=== PATIENT | male | born 1980 | race African-American/Black ===

== ENCOUNTER → 2019-07-02 10:00 | Outpatient (BNVA) | payer MEDICAID, SELFPAY | PROVIDERS: Visit Provider Nurse Practitioner Family | DX: G40.909 Epilepsy, unspecified, not intractable, without status epilepticus (principal) | CPT/HCPCS: 80053; 80177 ==

== ENCOUNTER → 2019-09-27 09:00 | Outpatient (BNVA) | payer MEDICAID, SELFPAY | PROVIDERS: Visit Provider Nurse Practitioner Family | DX: G40.409 Other generalized epilepsy and epileptic syndromes, not intractable, without status epilepticus (principal); F33.1 Major depressive disorder, recurrent, moderate; Z76.89 Persons encountering health services in other specified circumstances | CPT/HCPCS: 80177 ==

== ENCOUNTER → 2020-04-11 10:54 | Outpatient (BNVA) | payer MEDICAID, SELFPAY | PROVIDERS: Visit Provider Family Medicine | DX: Z09 Encounter for follow-up examination after completed treatment for conditions other than malignant neoplasm (principal); G40.409 Other generalized epilepsy and epileptic syndromes, not intractable, without status epilepticus; F33.1 Major depressive disorder, recurrent, moderate | CPT/HCPCS: 80053; 80177 ==

== ENCOUNTER → 2020-06-12 13:58 | Outpatient (BNVA) | payer MEDICAID, SELFPAY | PROVIDERS: Visit Provider Psychiatry & Neurology Psychiatry | DX: F63.81 Intermittent explosive disorder (principal); F33.1 Major depressive disorder, recurrent, moderate | CPT/HCPCS: 99204 ==

== ENCOUNTER → 2020-12-28 13:29 | Outpatient (BNVA) | payer MEDICAID, SELFPAY | PROVIDERS: Visit Provider Family Medicine | DX: G40.409 Other generalized epilepsy and epileptic syndromes, not intractable, without status epilepticus (principal) | CPT/HCPCS: 80177 ==

== ENCOUNTER → 2021-05-16 13:48 | Outpatient (BNVA) | payer MEDICAID, SELFPAY | PROVIDERS: Visit Provider Family Medicine | DX: G40.409 Other generalized epilepsy and epileptic syndromes, not intractable, without status epilepticus (principal); F33.1 Major depressive disorder, recurrent, moderate; R25.1 Tremor, unspecified | CPT/HCPCS: 80177 ==

== ENCOUNTER → 2021-08-29 09:48 | Outpatient (BNVA) | payer MEDICAID, SELFPAY | PROVIDERS: Visit Provider Specialist | DX: G40.901 Epilepsy, unspecified, not intractable, with status epilepticus (principal) | CPT/HCPCS: 99204 ==

== ENCOUNTER 2021-09-15 18:07 | Inpatient (IN) | payer MEDICAID, SELFPAY ==
[2021-09-15 18:11] VITALS: BP 104/81; PULSE 78; RESP 18; TEMP 36.8; O2SAT 95; BMI 29.0
--- NOTE | 2021-09-15 18:38 | ED.C_ITS ---
HPI - Psych General: Chief Complaint: Psychiatric Symptoms Stated Complaint: PSYCH EVAL Time Seen by Provider: 09/15/21 18:07 History of Present Illness: Patient comes in with depression and suicidal ideation. States yesterday he told his that he wished he had a gun so he could shoot himself or a knife to cut his throat. States he does not want to kill himself and does not think he would, however after discussing it with his family members he decided he would come to the emergency department for help. Denies alcohol or drug abuse except for medical marijuana. States he is due for his night meds at this time. Associated symptoms: Reports depression Review of Systems Const: Denies: fever(s) or body aches Eyes: Denies: change in vision or blurry vision ENMT: Denies: throat pain or odynophagia Card: Denies: chest pain or palpitations Resp: Denies: dyspnea or productive cough GI: Denies: abdominal pain, nausea or vomiting : Denies: flank pain or dysuria Musc: Denies: neck pain or back pain Skin/Breast: Denies: rash or pruritus Neuro: Denies: headache(s) or numbness in extremities Psych: Reports: depression; Denies: anxiety or change in appetite Endo: Denies: polyuria or excessive sweating PFSH ED PFSH: Medical History Depression doing well on paroxetine. refilled today. Epilepsy Grand mal seizure History of asthma Psychiatric care Social History Smoking and tobacco status: current every day smoker cigarettes Packs smoked per day: 1 Years cigarettes smoked: 23 [ Other cigarette details: and CBD] Quit status (tobacco): has tried quititng Alcohol intake: never Physical Exam Const: COMMON NORMALS: no acute distress, patient oriented x3, healthy appear ing and alert HENMT: COMMON NORMALS: normocephalic and atraumatic HEAD & SCALP: normocephalic and atraumatic Eye: COMMON NORMALS: Equal, round and reactive pupils present and EOMs intact bilaterally PUPIL: Yes Equal, round and reactive pupils present Neck/C-Spine: COMMON NORMALS: full ROM and supple Resp: COMMON NORMALS: normal respiratory effort, No retractions and No use of accessory muscles Cardio: COMMON NORMALS: regular rate and regular rhythm RATE: regular rate RHYTHM: regular rhythm GI: COMMON NORMALS: Normal to inspection, nondistended, normoactive bowel sounds present, Soft to palpation and non-tender PALPATION: Yes Soft to palpation Back/Pelvis: COMMON NORMALS: thoracic and lumbar spine normal to inspection and no thoracic nor lumbar tenderness Extremity: COMMON NORMALS: normal to inspection and full ROM Neuro: COMMON NORMALS: patient oriented x3 SENSORIUM/ORIENTATION: Yes alert Psych: COMMON NORMALS: mental status grossly normal and cooperative Skin: COMMON NORMALS: no rashes or lesions noted and no wounds GENERAL SKIN EXAM: no rashes or lesions noted Course Vital Signs: Vital signs: Vital Signs Temperature 98.3 F 09/15/21 18:11 Pulse Rate 78 09/15/21 18:11 Respiratory Rate 18 09/15/21 18:11 Blood Pressure 104/81 09/15/21 18:11 Pulse Oximetry 95 09/15/21 18:11 MDM - Psych Medical Decision Making Patient comes in with depression and suicidal ideation. States yesterday he told his that he wished he had a gun so he could shoot himself or a knife to cut his throat. States he does not want to kill himself and does not think he would, however after discussing it with his family members he decided he would come to the emergency department for help. Denies alcohol or drug abuse except for medical marijuana. States he is due for his night meds at this time. Physical exam is unremarkable. We will give him his night meds, check labs, consult psych, and reassess. On reassessment I discussed the case with psychiatry and we will admit the patient for further treatment of his depression and suicidal thoughts. Lab Data : 09/15/21 18:20 09/15/21 18:20 Laboratory Results WBC 7.8 10^3/uL (4.0-10.0) 09/15/21 18:20 RBC 5.60 10^6/uL (4.1-5.3) H 09/15/21 18:20 Hgb 17.0 g/dL (11.7-16.6) H 09/15/21 18:20 Hct 47.6 % (42.0-52.0) 09/15/21 18:20 MCV 85.0 fl (80-94) 09/15/21 18:20 MCH 30.4 pg (28.0-34.0) 09/15/21 18:20 MCHC 35.7 g/dL (30.0-36.0) 09/15/21 18:20 RDW 12.0 % (12.1-15.1) L 09/15/21 18:20 Plt Count 287 10^3/cmm (130-400) 09/15/21 18:20 MPV 10.3 fL (7.4-10.4) 09/15/21 18:20 Neut % (Auto) 59.0 % 09/15/21 18:20 Lymph % (Auto) 33.5 % 09/15/21 18:20 Teller % (Auto) 6.6 % 09/15/21 18:20 Eos % (Auto) 0.0 % 09/15/21 18:20 Baso % (Auto) 0.5 % 09/15/21 18:20 Neut # (Auto) 4.61 10^3/uL (1.8-7.7) 09/15/21 18:20 Lymph # (Auto) 2.6 10^3/uL (0.8-4.8) 09/15/21 18:20 Teller # (Auto) 0.5 10^3/uL (0.2-0.9) 09/15/21 18:20 Eos # (Auto) 0.0 10^3/uL (0.0-0.8) 09/15/21 18:20 Baso # (Auto) 0.0 10^3/uL (0.0-0.1) 09/15/21 18:20 Nucleated RBC % (auto) 0 % 09/15/21 18:20 Nucleated RBCs # 0.0 /100WBC 09/15/21 18:20 Sodium 135 mmol/L (136-145) L 09/15/21 18:20 Potassium 4.0 mmol/L (3.5-5.1) 09/15/21 18:20 Chloride 98 mmol/L (98-107) 09/15/21 18:20 Carbon Dioxide 23 mmol/L (22-29) 09/15/21 18:20 Anion Gap 18.0 (5-19) 09/15/21 18:20 BUN 8 mg/dL (6-20) 09/15/21 18:20 Creatinine 1.0 mg/dL (0.7-1.2) 09/15/21 18:20 GFR Calculation 100.7 mL/min (90-130) 09/15/21 18:20 Glucose 261 mg/dL (65-115) H 09/15/21 18:20 Calculated Osmolality 287 mOsm/kg (285-295) 09/15/21 18:20 Calcium 10.2 mg/dL (8.5-10.5) 09/15/21 18:20 Total Bilirubin 0.4 mg/dL (0.15-1.2) 09/15/21 18:20 AST 15 U/L (0-40) 09/15/21 18:20 ALT 28 U/L (0-41) 09/15/21 18:20 Alkaline Phosphatase 126 IU/L (40-130) 09/15/21 18:20 Total Protein 8.0 g/dL (6.6-8.7) 09/15/21 18:20 Albumin 5.0 g/dL (3.5-5.2) 09/15/21 18:20 Globulin 3.0 g/dL (1.3-4.6) 09/15/21 18:20 Salicylates < 0.3 mg/dL (3-10) L 09/15/21 18:20 Urine Opiates Screen Negative ng/mL (Negative) 09/15/21 18:20 Acetaminophen < 5.0 ug/mL (10-30) L 09/15/21 18:20 Ur Barbiturates Screen Negative ng/mL (Negative) 09/15/21 18:20 Ur Phencyclidine Scrn Negative ng/mL (Negative) 09/15/21 18:20 Ur Amphetamines Screen Negative ng/mL (Negative) 09/15/21 18:20 U Benzodiazepines Scrn Negative ng/mL (Negative) 09/15/21 18:20 Urine Cocaine Screen Negative ng/mL (Negative) 09/15/21 18:20 U Marijuana (THC) Screen Negative ng/mL (Negative) 09/15/21 18:20 Discharge Plan Discharge Patient Disposition: Admitted As Inpatient Clinical Impression: Depression, Suicidal thoughts Condition: Stable Coding Level of Care Code ED Stem Processing Machine Operator for [facility] Fwd Exam Comprehensive
[2021-09-15 18:47] LABS: Basophils % 0.5 %; Hematocrit 47.6 % (42.0-52.0); Lymphocytes # 2.6 10^3/uL (0.8-4.8); Lymphocytes % 33.5 %; Mean Corpuscular HGB Conc 35.7 g/dL (30.0-36.0); Mean Corpuscular Hemoglobin 30.4 pg (28.0-34.0); Mean Platelet Volume 10.3 fL (7.4-10.4); Monocytes # 0.5 10^3/uL (0.2-0.9); Monocytes % 6.6 %; Neutrophils # 4.61 10^3/uL (1.8-7.7); Nucleated Red Blood Cells % 0 %; Platelet Count 287 10^3/cmm (130-400); White Blood Count 7.8 10^3/uL (4.0-10.0)
[2021-09-15 18:57] LABS: Alanine Aminotransferase 28 U/L (0-41); Alkaline Phosphatase 126 IU/L (40-130); Aspartate Amino Transferase 15 U/L (0-40); Blood Urea Nitrogen 8 mg/dL (6-20); Calcium 10.2 mg/dL (8.5-10.5); Carbon Dioxide 23 mmol/L (22-29); Chloride 98 mmol/L (98-107); Glomerular Filtration Rate 100.7 mL/min (90-130); Glucose 261 mg/dL (65-115); Osmolality Calculated 287 mOsm/kg (285-295); Sodium 135 mmol/L (136-145); Total Bilirubin 0.4 mg/dL (0.15-1.2)
[2021-09-15 19:01] LABS: Acetaminophen < 5.0 ug/mL (10-30); Salicylate < 0.3 mg/dL (3-10)
[2021-09-15] MEDS: PARoxetine 20 mg Tablet 10 MG PO (19:17)
[2021-09-15] MEDS: ziprasidone hcl 20 mg Capsule PO (19:17)
[2021-09-15] MEDS: levETIRAcetam 500 mg Tablet PO (19:17)
[2021-09-15] MEDS: OXcarbazepine 300 mg Tablet 600 MG PO (19:18)
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
[2021-09-15 19:30] LABS: Amphetamines Screen Urine Negative (Negative); Barbiturates Screen Urine Negative (Negative); Benzodiazepines Screen Urine Negative (Negative); Cocaine Screen Urine Negative (Negative); Opiate Screen Urine Negative (Negative); PCP Screen Urine Negative (Negative); THC Screen Urine Negative (Negative)
[2021-09-15 20:47] VITALS: BP 135/87; PULSE 82; RESP 16; O2SAT 95
[2021-09-15 21:13] VITALS: BP 129/83; PULSE 74; RESP 18; TEMP 36.8; O2SAT 99
[2021-09-15 21:35] VITALS: BMI 34.0
[2021-09-15 22:00] VITALS: BP 129/83; PULSE 74; RESP 18; TEMP 36.8
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
[2021-09-16 06:00] VITALS: BP 131/81; PULSE 69; RESP 20; TEMP 36.7; O2SAT 97
[2021-09-16] MEDS: levETIRAcetam 500 mg Tablet PO ×2 (07:51→16:37)
[2021-09-16] MEDS: OXcarbazepine 300 mg Tablet 600 MG PO ×2 (07:51→16:38)
[2021-09-16] MEDS: ziprasidone hcl 20 mg Capsule PO ×4 (07:51→20:18)
[2021-09-16] MEDS: pantoprazole DR 40 mg Tablet PO ×2 (07:51→16:37)
--- NOTE | 2021-09-16 12:21 | P.NPUHP_ITS ---
Providers/Chief Complaint Admitting Physician: Mert Estes MD Chief Complaint: PSYCH EVAL HPI NPU History of Present Illness With a followAaron Kim is a 41 year old male who presented to the emergency department with the following report: Chief Complaint: Psychiatric Symptoms Stated Complaint: PSYCH EVAL Time Seen by Provider: 09/15/21 18:07 History of Present Illness: Patient comes in with depression and suicidal ideation. States yesterday he told his that he wished he had a gun so he c ould shoot himself or a knife to cut his throat. States he does not want to kill himself and does not think he would, however after discussing it with his family members he decided he would come to the emergency department for help. Denies alcohol or drug abuse except for medical marijuana. States he is due for his night meds at this time. Associated symptoms: Reports depression He presents today reports he does not have any known allergies to medications and is on a seizure medication twice daily, geodon three times daily, and a sleep medication once a day. He reports he presents to the hospital as he stated some things to his he wish he hadn?t including suicidal statements of ?I wish I had a gun so I could blow my brains out? and ?I wish I had a knife and I would slit my throat?. She asked if he wanted to speak with someone and he agreed and told the people who came that he wanted to get himself to a place where he could get help. He reports his Geodon isn?t helping him with his anger and his sleep medication is no longer working either. He reports he has been psychiatrically hospitalized twice in [facility] and had been prescribed his medications through a doctor/counselor he saw in [facility]. He reports 2 cigarettes a day, denies alcohol, marijuana for his seizures, and denies any illicit drug use. He has never had drug and alcohol related charges. He reports he started his medications in his 20s as he began having issues with bipolar disorder as he denies any issues prior to this time. He has not been on many different medications throughout his life. He reports he was living by himself and experienced worsening depression at one period of time which brought the symptom of passive wish which he went to the hospital for each time but denies suicidal attempts or livia suicidal ideation. Psychiatric History: As above. Substance Abuse History: As above Family History: He denies mental health issues on either side of the family or addiction issues on either side of the family. Developmental History: He reports he was premature and had seizures from , but learned to walk and talk and met his developmental milestones on time. He reports he needed speech therapy and special education classes. Psychosocial History: He reports his parents were together when he was born and remained together until his father . He has 8 siblings who are products of the same union. He described his childhood as good and denies any emotional, physical or sexual abuse. He denies CYS involvement or any other traumatic events. He graduated high school. He endorses being heterosexual with his longest relationship being 2 to 3 years. He has been twice, has been once, has a 15 year old and 3 months old daughters, has never been in the and endorses believing in god. He is currently on disability. He lives in a trailer with his , her neighbor and her neighbor?s . Legal History: He has been to [facility] multiple times, the longest of which was 21 days. Medical History: He has seizures. Meds NPU Home Medications Medication Instructions Recorded Confirmed Last Taken Type acetaminophen 325 mg tablet 325 mg PO QID PRN 06/12/20 09/15/21 Unknown History (Tylenol) diphenhydramine 25 1 ml PO BEDTIME 12/28/20 09/15/21 Unknown History mg-acetaminophen 500 mg/15 mL oral solution albuterol sulfate 90 mcg/actuation 2 puff INHALATION QID PRN #18 gm 04/02/21 09/15/21 Unknown Rx aerosol inhaler (ProAir HFA) ziprasidone HCl 20 mg capsule 20 mg PO TID #90 cap 04/02/21 09/15/21 09/15/21 Rx 20 omeprazole 20 mg capsule,delayed 20 mg PO BID #60 cap 05/25/21 09/15/21 Unknown Rx release levetiracetam 500 mg tablet 500 mg PO BID #60 tab 08/29/21 09/15/21 Unknown Rx lorazepam 2 mg/mL oral concentrate 2 mg PO DAILY PRN #30 ml 08/29/21 09/15/21 Unknown Rx (Lorazepam Intensol) oxcarbazepine 300 mg tablet 300 mg PO BID #14 tab 08/29/21 09/15/21 Unknown Rx (Trileptal) oxcarbazepine 600 mg tablet 600 mg PO BID #60 tab 08/29/21 09/15/21 Unknown Rx (Trileptal) paroxetine HCl 10 mg tablet 10 mg PO BEDTIME 09/15/21 09/15/21 Unknown History Allergies Allergy/AdvReac Type Severity Reaction Status Date / Time morphine Allergy Intermediate ADR-Itching Verified 08/29/21 10:42 PFSH NPU PFSH: Medical History Depression doing well on paroxetine. refilled today. Epilepsy Grand mal seizure History of asthma Psychiatric care Social History Smoking and tobacco status: current every day smoker cigarettes Packs smoked per day: 1 Years cigarettes smoked: 23 [ Other cigarette details: and CBD] Quit status (tobacco): has tried quititng Alcohol intake: never Mental Status Exam MSE Comments: This is an obese -[place] male in hospital scrubs with limited grooming and eye contact. Poor dentition and sits with his mouth open much of the time. No abnormal movements except for mild psychomotor retardation. Cooperative with exam in no acute distress. Speech was normal rate and volume. Mood described as alright, affect is congruent. Thought process, organized. Thought content: patient denies suicidal or homicidal ideation, no delusions reported or noted, and denies any auditory or visual hallucinations. Attention and concentration are intact and memory appeared reliable but none were formally tested. He is alert and oriented three times. Insight and judgment are limited. Impulse control is limited. Intellectual ability is limited versus impaired. Vitals/I&O/Wt Last Vital Signs Temp 98.0 F 09/16/21 06:00 Pulse 69 09/16/21 06:00 Resp 20 H 09/16/21 06:00 BP 131/81 09/16/21 06:00 Pulse Ox 97 09/16/21 06:00 Weight last 48 hrs Weight 95.254 kg Weight 95.527 kg Weight 81.647 kg Data NPU : 09/15/21 18:20 09/15/21 18:20 A&P Assessment and plan (1) Suicidal thoughts: Status: Acute (2) Intermittent explosive disorder: Status: Acute (3) Systolic blood pressure less than 130 mm Hg: Status: Acute (4) BMI 35.0-35.9,adult: Status: Acute (5) Grand mal seizure: Status: Acute (6) Epilepsy: Status: Acute Qualifiers: Epilepsy type: unspecified Intractability: not intractable Status epilepticus: with status epilepticus Qualified Code(s): G40.901 - Epilepsy, unspecified, not intractable, with status epilepticus Plan This is a 41 year old male with a history of bipolar disorder who presents with recent mental health challenges endorsing some success on his current medications but wanting to seek treatment to change his medications as he feels they have decreased in effectiveness. 1. Continue current medications. Will get collateral information on what medic ations the patient is currently taking before initiating medications changes. 2. Encourage individual, group and milieu therapy 3. Continue q-15 minute check for safety 4. Recommend sober living treatment at the highest level of care to which the patient is willing to commit. Involuntary Hold Information 96 Hour Hold: 96 Hour Involuntary Admission: No Attestations NPU Medical Necessity Statement*: Inpatient hospitalization is medically necessary and the clinically appropriate intervention at this time. We will monitor medications and make changes as indicated. Patient will be in the hospital for over two midnights. Likely length of stay is 2-4 days. Coding Level of Care Code Acute Supervising Appraiser for [facility] Mod Diagnoses Suicidal thoughts R45.851 Intermittent explosive disorder F63.81 Systolic blood pressure less than 130 mm Hg BMI 35.0-35.9,adult Z68.35 Grand mal seizure G40.409 Epilepsy G40.901 Epilepsy type: unspecified Intractability: not intractable Status epilepticus: with status epilepticus
[2021-09-16 14:00] VITALS: BP 115/73; PULSE 78; RESP 16; O2SAT 98
[2021-09-16 20:01] VITALS: BP 112/69; PULSE 86; RESP 20; TEMP 36.8; O2SAT 98
[2021-09-16] MEDS: PARoxetine 20 mg Tablet 10 MG PO (20:18)
[2021-09-17 06:00] VITALS: BP 138/79; PULSE 70; RESP 18; TEMP 36.6; O2SAT 98
[2021-09-17] MEDS: OXcarbazepine 300 mg Tablet 600 MG PO ×2 (07:58→20:17)
[2021-09-17] MEDS: pantoprazole DR 40 mg Tablet PO ×2 (07:58→20:17)
[2021-09-17] MEDS: levETIRAcetam 500 mg Tablet PO ×2 (07:59→20:18)
[2021-09-17] MEDS: ziprasidone hcl 20 mg Capsule PO ×3 (07:59→14:51)
[2021-09-17 14:00] VITALS: BP 122/72; PULSE 82; RESP 17; TEMP 36.6; O2SAT 98
--- NOTE | 2021-09-17 17:18 | W.PM.NPUPNS ---
Subjective NPU Subjective: Patient presents today reporting that he is feeling a little better. He reports having a test to take of breath and interact with other people later having similar challenges has been helpful. He is beginning to focus on going home and being with his . We discussed with benefits and alternatives of changing the dose of his Geodon to only twice daily but 80 mg and he understood agreed proceed as documented in this note. Mental Status Exam MSE Comments: This is an obese -[place] male in hospital scrubs with limited grooming and eye? contact. Poor dentition and sits with his mouth open much of the time. No abnormal movements except for mild psychomotor retardation. Cooperative with exam in no acute distress. Speech was normal rate and volume. Mood described as okay, affect is congruent. Thought process, organized. Thought content: patient denies suicidal or homicidal ideation, no delusions reported or noted, and denies any auditory or visual hallucinations. Attention and concentration are intact and memory appeared reliable but none were formally tested. He is alert and oriented three times. Insight and judgment are limited. Impulse control is limited. Intellectual ability is limited versus impaired.? Vitals/I&O/Wt Last Vital Signs Temp 97.8 F 09/17/21 06:00 Pulse 70 09/17/21 06:00 Resp 18 09/17/21 06:00 BP 138/79 09/17/21 06:00 Pulse Ox 98 09/17/21 06:00 Weight last 48 hrs Weight 95.254 kg Weight 95.527 kg Weight 81.647 kg Data NPU : 09/15/21 18:20 09/15/21 18:20 A&P Assessment and plan (1) Suicidal thoughts: Status: Acute (2) Intermittent explosive disorder: Status: Acute (3) BMI 35.0-35.9,adult: Status: Acute (4) Grand mal seizure: Status: Acute (5) Depression: Status: Acute (6) Epilepsy: Status: Acute Qualifiers: Epilepsy type: unspecified Intractability: not intractable Status epilepticus: with status epilepticus Qualified Code(s): G40.901 - Epilepsy, unspecified, not intractable, with status epilepticus Plan This is a 41 year old male with a history of bipolar disorder who presents with recent mental health challenges endorsing some success on his current medications but wanting to seek treatment to change his medications as he feels they have decreased in effectiveness. 1.? Continue current medications. Increase his [id number] mg 3 times daily to 40 mg p.o. twice daily. 2.? Encourage individual, group and milieu therapy 3.? Continue q-15 minute check for safety 4.? Recommend sober living treatment at the highest level of care to which the patient is willing to commit. Involuntary Hold Information 96 Hour Hold: 96 Hour Involuntary Admission: No Attestations NPU Medical Necessity Statement*: Inpatient hospitalization is medically necessary and the clinically appropriate intervention at this time. We will monitor medications and make changes as indicated. Likely length of stay is 1-3 days. Coding Level of Care Code Acute Marklogic Developer for [facility] Fwd Diagnoses Suicidal thoughts R45.851 Intermittent explosive disorder F63.81 BMI 35.0-35.9,adult Z68.35 Grand mal seizure G40.409 Depression F32.9 Epilepsy G40.901 Epilepsy type: unspecified Intractability: not intractable Status epilepticus: with status epilepticus
[2021-09-17] MEDS: PARoxetine 20 mg Tablet 10 MG PO (20:17)
[2021-09-17 21:04] VITALS: BP 141/82; PULSE 62; RESP 18; TEMP 36.7; O2SAT 100
[2021-09-17 21:56] VITALS: PULSE 70; RESP 16; O2SAT 100
[2021-09-18 06:00] VITALS: BP 121/66; PULSE 64; RESP 18; TEMP 36.8; O2SAT 98
[2021-09-18] MEDS: ziprasidone hcl 20 mg Capsule 40 MG PO ×2 (06:02→16:28)
[2021-09-18] MEDS: OXcarbazepine 300 mg Tablet 600 MG PO ×2 (10:20→21:19)
[2021-09-18] MEDS: levETIRAcetam 500 mg Tablet PO ×2 (10:21→21:19)
[2021-09-18] MEDS: pantoprazole DR 40 mg Tablet PO ×2 (10:21→21:19)
[2021-09-18 12:34] VITALS: PULSE 82; RESP 18; O2SAT 98
[2021-09-18 13:58] VITALS: BP 121/66; PULSE 76; RESP 20; TEMP 36.9; O2SAT 98
[2021-09-18 18:52] VITALS: BP 140/84; PULSE 94; TEMP 36.8; O2SAT 96
--- NOTE | 2021-09-18 19:17 | P.NPUPN_ITS ---
Subjective NPU Subjective: Patient presents today reporting that he is tolerating the increase in his Geodon thus far. He reports that it has not been working for his mood swings and psychosis and so he was glad that changed. He feels like that is working and he is feeling somewhat anxious about the fact that he does not think medications exactly at the time that he takes them at home we discussed that once he is discharged he can go back to other times. But we assured him that the time he is taking him here are not harming him. He is really interested in going home soon as possible but we discussed the risk, benefits alternatives of discharging him on to his appointment given his limitations and the importance of the appointment and he understood agreed proceed as documented in his note. Mental Status Exam MSE Comments: This is an obese -Citizen Of [place] male in hospital scrubs with limited grooming and eye? contact. Poor dentition and sits with his mouth open much of the time. No abnormal movements except for mild psychomotor retardation. Cooperative with exam in no acute distress. Speech was normal rate and volume. Mood described as a little better, affect is congruent. Thought process, org anized. Thought content: patient denies suicidal or homicidal ideation, no delusions reported or noted, and denies any auditory or visual hallucinations. Attention and concentration are intact and memory appeared reliable but none were formally tested. He is alert and oriented three times. Insight and judgment are limited. Impulse control is limited. Intellectual ability is limited versus impaired.? Vitals/I&O/Wt Last Vital Signs Temp 98.3 F 09/18/21 18:52 Pulse 94 09/18/21 18:52 Resp 20 H 09/18/21 13:58 BP 140/84 09/18/21 18:52 Pulse Ox 96 09/18/21 18:52 Data NPU : 09/15/21 18:20 09/15/21 18:20 A&P Assessment and plan (1) Suicidal thoughts: Status: Acute (2) Intermittent explosive disorder: Status: Acute (3) BMI 35.0-35.9,adult: Status: Acute (4) Grand mal seizure: Status: Acute (5) Depression: Status: Acute (6) Epilepsy: Status: Acute Qualifiers: Epilepsy type: unspecified Intractability: not intractable Status epilepticus: with status epilepticus Qualified Code(s): G40.901 - Epilepsy, unspecified, not intractable, with status epilepticus Plan This is a 41 year old male with a history of bipolar disorder who presents with recent mental health challenges endorsing some success on his current medications but wanting to seek treatment to change his medications as he feels they have decreased in effectiveness. 1.? Continue current medications.? Increased his Geodon 20 mg 3 times daily to 40 mg p.o. twice daily. 2.? Encourage individual, group and milieu therapy 3.? Continue q-15 minute check for safety 4.? Recommend sober living treatment at the highest level of care to which the patient is willing to commit. Involuntary Hold Information 96 Hour Hold: 96 Hour Involuntary Admission: No Attestations NPU Medical Necessity Statement*: Inpatient hospitalization is medically necessary and the clinically appropriate intervention at this time. We will monitor medications and make changes as indicated.? Likely length of stay is 1-3 days. Coding Level of Care Code Acute Materials Buyer for [facility] Diagnoses Suicidal thoughts R45.851 Intermittent explosive disorder F63.81 BMI 35.0-35.9,adult Z68.35 Grand mal seizure G40.409 Depression F32.9 Epilepsy G40.901 Epilepsy type: unspecified Intractability: not intractable Status epilepticus: with status epilepticus
[2021-09-18] MEDS: PARoxetine 20 mg Tablet 10 MG PO (21:20)
[2021-09-18 22:00] VITALS: BP 140/84; PULSE 94; RESP 20; TEMP 36.8; O2SAT 96
[2021-09-19 06:00] VITALS: BP 104/62; PULSE 58; RESP 20; TEMP 36.7; O2SAT 96
[2021-09-19] MEDS: ziprasidone hcl 20 mg Capsule 40 MG PO ×2 (06:12→17:20)
[2021-09-19 08:05] VITALS: PULSE 58; RESP 20; O2SAT 96
[2021-09-19] MEDS: OXcarbazepine 300 mg Tablet 600 MG PO ×2 (09:50→20:06)
[2021-09-19] MEDS: pantoprazole DR 40 mg Tablet PO ×2 (09:50→20:06)
[2021-09-19] MEDS: levETIRAcetam 500 mg Tablet PO ×2 (09:50→20:06)
[2021-09-19 14:00] VITALS: BP 120/74; PULSE 67; RESP 16; TEMP 36.8; O2SAT 97
--- NOTE | 2021-09-19 18:12 | P.NPUPN_ITS ---
Subjective NPU Subjective: Patient presents today reporting that he is tolerating the increase in the Geodon without any problems. He reports he is been in contact with hold and is feeling more positive about his situation. He still has the challenges with his youngest child and DFS/CYS, but he feels that he is doing better and is prepared to handle those things. He reports he feels ready for discharge tomorrow with plans to attend his neurology appointment and likely have an EEG. Mental Status Exam MSE Comments: This is an obese -[place] male in hospital scrubs with limited grooming and eye? contact. Poor dentition and sits with his mouth open much of the time. No abnormal movements except for mild psychomotor retardation. Cooperative with exam in no acute distress. Speech was normal rate and volume. Mood described as better, affect is congruent. Thought process, organized. Thought content: patient denies suicidal or homicidal ideation, no delusions reported or noted, and denies any auditory or visual hallucinations. Attention and concentration are intact and memory appeared reliable but none were formally tested. He is alert and oriented three times. Insight and judgment are limited. Impulse control is limited. Intellectual ability is limited versus impaired.? Vitals/I&O/Wt Last Vital Signs Temp 98.3 F 09/19/21 21:07 Pulse 83 09/19/21 21:07 Resp 18 09/19/21 21:07 BP 121/54 09/19/21 21:07 Pulse Ox 96 09/19/21 21:07 Data NPU : 09/15/21 18:20 09/15/21 18:20 A&P Assessment and plan (1) Suicidal thoughts: Status: Acute (2) Intermittent explosive disorder: Status: Acute (3) BMI 35.0-35.9,adult: Status: Acute (4) Grand mal seizure: Status: Acute (5) Depression: Status: Acute (6) Epilepsy: Status: Acute Qualifiers: Epilepsy type: unspecified Intractability: not intractable Status epilepticus: with status epilepticus Qualified Code(s): G40.901 - Epilepsy, unspecified, not intractable, with status epilepticus (7) Mild intellectual disability: Status: Acute Plan This is a 41 year old male with a history of bipolar disorder who presents with recent mental health challenges endorsing some success on his current medications but wanting to seek treatment to change his medications as he feels they have decreased in effectiveness. 1.? Continue current medications.? Increased his Geodon 20 mg 3 times daily to 40 mg p.o. twice daily. 2.? Encourage individual, group and milieu therapy 3.? Continue q-15 minute check for safety 4.? Recommend sober living treatment at the highest level of care to which the p atient is willing to commit. 5. Plan for discharge tomorrow prior to his appointment. Involuntary Hold Information 96 Hour Hold: 96 Hour Involuntary Admission: No Attestations NPU Medical Necessity Statement*: Inpatient hospitalization is medically necessary and the clinically appropriate intervention at this time. We will monitor medications and make changes as indicated.? Likely length of stay is 1-2 days. Coding Level of Care Code Acute Advertising Columnist for Sherrie Mod Diagnoses Suicidal thoughts R45.851 Intermittent explosive disorder F63.81 BMI 35.0-35.9,adult Z68.35 Grand mal seizure G40.409 Depression F32.9 Epilepsy G40.901 Epilepsy type: unspecified Intractability: not intractable Status epilepticus: with status epilepticus Mild intellectual disability F70
[2021-09-19] MEDS: PARoxetine 20 mg Tablet 10 MG PO (20:06)
[2021-09-19 21:07] VITALS: BP 121/54; PULSE 83; RESP 18; TEMP 36.8; O2SAT 96
[2021-09-20 06:00] VITALS: BP 117/61; PULSE 78; RESP 17; TEMP 36.6; O2SAT 98
[2021-09-20] MEDS: ziprasidone hcl 20 mg Capsule 40 MG PO (06:07)
[2021-09-20] MEDS: levETIRAcetam 500 mg Tablet PO (09:30)
[2021-09-20] MEDS: OXcarbazepine 300 mg Tablet 600 MG PO (09:30)
[2021-09-20] MEDS: pantoprazole DR 40 mg Tablet PO (09:30)
--- NOTE | 2021-09-20 14:53 | W.PM.NPUDCS ---
Diagnoses at Discharge Discharge Diagnosis (1) Suicidal thoughts: (2) Intermittent explosive disorder: Status: Acute (3) BMI 35.0-35.9,adult: Status: Acute (4) Grand mal seizure: Status: Acute (5) Depression: Status: Acute Permanent problem details: doing well on paroxetine. refilled today. (6) Epilepsy: Status: Acute Qualifiers: Epilepsy type: unspecified Intractability: not intractable Status epilepticus: with status epilepticus Qualified Code(s): G40.901 - Epilepsy, unspecified, not intractable, with status epilepticus (7) Mild intellectual disability: Status: Acute Reason for Visit Reason for Visit: PSYCH EVAL Brief History: History of Present Illness With a followAaron Kim is a 41 year old male who presented to the emergency department with the following report: Chief Complaint: Psychiatric Symptoms Stated Complaint: PSYCH EVAL Time Seen by Provider: 09/15/21 18:07 History of Present Illness:?? Patient comes in with depression and suicidal ideation.? States yesterday he told his that he wished he had a gun so he could shoot himself or a knife to cut his throat.? States he does not want to kill himself and does not think he would, however after discussing it with his family members he decided he would come to the emergency department for help.? Denies alcohol or drug abuse except for medical marijuana.? States he is due for his night meds at this time.? Associated symptoms: Reports depression He presents today reports he does not have any known allergies to medications and is on a seizure medication twice daily, geodon three times daily, and a sleep medication once a day. He reports he presents to the hospital as he stated some things to his he wish he hadn?t including suicidal statements of ?I wish I had a gun so I could blow my brains out? and ?I wish I had a knife and I would slit my throat?. She asked if he wanted to speak with someone and he agreed and told the people who came that he wanted to get himself to a place where he could get help. He reports his Geodon isn?t helping him with his anger and his sleep medication is no longer working either. He reports he has been psychiatrically hospitalized twice in [facility] and had been prescribed his medications through a doctor/counselor he saw in [facility]. He reports 2 cigarettes a day, denies alcohol, marijuana for his seizures, and denies any illicit drug use. He has never had drug and alcohol related charges. He reports he started his medications in his 20s as he began having issues with bipolar disorder as he denies any issues prior to this time. He has not been on many different medications throughout his life. He reports he was living by himself and experienced worsening depression at one period of time which brought the symptom of passive wish which he went to the hospital for each time but denies suicidal attempts or livia suicidal ideation. Psychiatric History: As above. Substance Abuse History: As above Family History: He denies mental health issues on either side of the family or addiction issues on either side of the family. Developmental History: He reports he was premature and had seizures from , but learned to walk and talk and met his developmental milestones on time. He reports he needed speech therapy and special education classes. Psychosocial History: He reports his parents were together when he was born and remained together until his father . He has 8 siblings who are products of the same union. He described his childhood as good and denies any emotional, physical or sexual abuse. He denies CYS involvement or any other traumatic events. He graduated high school. He endorses being heterosexual with his longest relationship being 2 to 3 years. He has been twice, has been once, has a 15 year old and 3 months old daughters, has never been in the and endorses believing in god. He is currently on disability. He lives in a trailer with his , her neighbor and her neighbor?s . Legal History: He has been to nursing home multiple times, the longest of which was 21 days. Medical History: He has seizures.? Hospital Course Hospital Course He slowly acclimated to the individual, group and milieu therapies. We continued his home medications, except we increased his geodon to 40 mg po bid and had marked improvement. He ws able to contract for safety outside of the hospital prior to discharge. During the hospitalization, patient had routine laboratory studies which were within normal limits except for few outliers. Additionally there was a general medical evaluation which was also within normal limits and revealed no new acute processes. Discharge Summary: At the time of discharge, he denied psychosis or lethality. Mood and anxiety were well managed. Patient endorsed a plan to avoid all drugs of abuse and follow-up with the aftercare recommendations of the treatment team. Patient was evaluated and deemed to be absent credible lethality, and had achieved the maximum benefit from an inpatient hospitalization, so was discharged. Involuntary Hold Information 96 Hour Hold: 96 Hour Involuntary Admission: No Mental Status Exam MSE Comments: This is an obese -[place]alese male in hospital scrubs with limited grooming and eye? contact. Poor dentition and sits with his mouth open much of the time. No abnormal movements except for mild psychomotor retardation. Cooperative with exam in no acute distress. Speech was normal rate and volume. Mood described as better, affect is congruent. Thought process, organized. Thought content: patient denies suicidal or homicidal ideation, no delusions reported or noted, and denies any auditory or visual hallucinations. Attention and concentration are intact and memory appeared reliable but none were formally tested. He is alert and oriented three times. Insight and judgment are limited. Impulse control is limited. Intellectual ability is limited versus impaired.? Discharge Data Studies Completed and Pending: Laboratory Results WBC 7.8 10^3/uL (4.0- 10.0) 09/15/21 18:20 RBC 5.60 10^6/uL (4.1 -5.3) H 09/15/21 18:20 Hgb 17.0 g/dL (11.7-1 6.6) H 09/15/21 18:20 Hct 47.6 % (42.0-52.0 ) 09/15/21 18:20 MCV 85.0 fl (80-94) 09/15/21 18:20 MCH 30.4 pg (28.0-34. 0) 09/15/21 18:20 MCHC 35.7 g/dL (30.0-3 6.0) 09/15/21 18:20 RDW 12.0 % (12.1-15.1 ) L 09/15/21 18:20 Plt Count 287 10^3/cmm (130 -400) 09/15/21 18:20 MPV 10.3 fL (7.4-10.4 ) 09/15/21 18:20 Neut % (Auto) 59.0 % 09/15/21 18:20 Lymph % (Auto) 33.5 % 09/15/21 18:20 [place] % (Auto) 6.6 % 09/15/21 18:20 Eos % (Auto) 0.0 % 09/15/21 18:20 Baso % (Auto) 0.5 % 09/15/21 18:20 Neut # (Auto) 4.61 10^3/uL (1.8 -7.7) 09/15/21 18:20 Lymph # (Auto) 2.6 10^3/uL (0.8- 4.8) 09/15/21 18:20 [place] # (Auto) 0.5 10^3/uL (0.2- 0.9) 09/15/21 18:20 Eos # (Auto) 0.0 10^3/uL (0.0- 0.8) 09/15/21 18:20 Baso # (Auto) 0.0 10^3/uL (0.0- 0.1) 09/15/21 18:20 Nucleated RBC % (a uto) 0 % 09/15/21 18:20 Nucleated RBCs # 0.0 /100WBC 09/15/21 18:20 Sodium 135 mmol/L (136-1 45) L 09/15/21 18:20 Potassium 4.0 mmol/L (3.5-5 .1) 09/15/21 18:20 Chloride 98 mmol/L (98-107 ) 09/15/21 18:20 Carbon Dioxide 23 mmol/L (22-29) 09/15/21 18:20 Anion Gap 18.0 (5-19) 09/15/21 18:20 BUN 8 mg/dL (6-20) 09/15/21 18:20 Creatinine 1.0 mg/dL (0.7-1. 2) 09/15/21 18:20 GFR Calculation 100.7 mL/min (90- 130) 09/15/21 18:20 Glucose 261 mg/dL (65-115 ) H 09/15/21 18:20 Calculated Osmolal ity 287 mOsm/kg (285- 295) 09/15/21 18:20 Calcium 10.2 mg/dL (8.5-1 0.5) 09/15/21 18:20 Total Bilirubin 0.4 mg/dL (0.15-1 .2) 09/15/21 18:20 AST 15 U/L (0-40) 09/15/21 18:20 ALT 28 U/L (0-41) 09/15/21 18:20 Alkaline Phosphata se 126 IU/L (40-130) 09/15/21 18:20 Total Protein 8.0 g/dL (6.6-8.7 ) 09/15/21 18:20 Albumin 5.0 g/dL (3.5-5.2 ) 09/15/21 18:20 Globulin 3.0 g/dL (1.3-4.6 ) 09/15/21 18:20 Salicylates < 0.3 mg/dL (3-10 ) L 09/15/21 18:20 Urine Opiates Scre en Negative ng/mL (N egative) 09/15/21 18:20 Acetaminophen < 5.0 ug/mL (10-3 0) L 09/15/21 18:20 Ur Barbiturates Sc reen Negative ng/mL (N egative) 09/15/21 18:20 Ur Phencyclidine S crn Negative ng/mL (N egative) 09/15/21 18:20 Ur Amphetamines Sc reen Negative ng/mL (N egative) 09/15/21 18:20 U Benzodiazepines Scrn Negative ng/mL (N egative) 09/15/21 18:20 Urine Cocaine Scre en Negative ng/mL (N egative) 09/15/21 18:20 U Marijuana (THC) Screen Negative ng/mL (N egative) 09/15/21 18:20 Vitals: Last Vital Signs Temp 98 F 09/20/21 06:00 Pulse 78 09/20/21 06:00 Resp 17 09/20/21 06:00 BP 117/61 09/20/21 06:00 Pulse Ox 98 09/20/21 06:00 Discharge Plan Discharge Patient Disposition: Home Condition: Stable Prescriptions: New ziprasidone HCl 20 mg Capsule 40 mg PO 0700,1700 30 Days Qty: 120 1RF Continued diphenhydramine-acetaminophen 25-500 mg-mg/mL solution 1 ml PO BEDTIME 0RF albuterol sulfate [ProAir HFA] 90 mcg/actuation HFA aerosol inhaler 2 puff INHALATION QID PRN (Reason: shortness of breath or wheezing) Qty: 18 5RF acetaminophen [Tylenol] 325 mg tablet 325 mg PO QID PRN (Reason: Pain) 0RF oxcarbazepine [Trileptal] 600 mg tablet 600 mg PO BID Qty: 60 2RF Rx Instructions: Take 1 tablet twice daily levetiracetam 500 mg tablet 500 mg PO BID Qty: 60 2RF omeprazole 20 mg capsule,delayed release(DR/EC) 20 mg PO BID Qty: 60 2RF paroxetine HCl 10 mg tablet 10 mg PO BEDTIME 0RF Discontinued ziprasidone HCl 20 mg capsule 20 mg PO TID Qty: 90 11RF oxcarbazepine [Trileptal] 300 mg tablet 300 mg PO BID Qty: 14 0RF Rx Instructions: Take 1 tablet twice daily for 1 week then increase to 600mg twice daily lorazepam [Lorazepam Intensol] 2 mg/mL concentrate 2 mg PO DAILY PRN (Reason: anxiety) Qty: 30 0RF Discharge Orders: Discharge Order (Routine); Ordered 09/20/21 Ordered By: Mert Estes Referrals: Cee Eller MD [Physician] - 09/20/21 3:00 pm Abbey Green [Therapist] - 09/26/21 11:45 am (Follow up. ) Discharge Diet: Regular Discharge Activity: Resume usual activity Patient Instructions: Suicide Prevention (DC), Opioid Safety Discharge Attestations NPU Time Spent in Discharge Care*: less than 30 min Specific Discharge Activities: Specific discharge activities: educating patient, discussing with pcp/other providers, documenting/other paperwork and evaluating patient/reviewing data Coding Level of Care Code Acute Chg FW DC note Diagnoses Suicidal thoughts R45.851 Intermittent explosive disorder F63.81 BMI 35.0-35.9,adult Z68.35 Grand mal seizure G40.409 Depression F32.9 Epilepsy G40.901 Epilepsy type: unspecified Intractability: not intractable Status epilepticus: with status epilepticus Mild intellectual disability F70
[2021-09-20 14:55] VITALS: BP 117/61; PULSE 78; RESP 17; TEMP 36.6; O2SAT 98
== END 2021-09-20 15:00 | disposition home or self-care (01) | DRG 881 ==
LOC: ER 19:38 → NP 09-16 00:27
PROVIDERS: Admitting Provider Psychiatry & Neurology Psychiatry; Emergency Provider Emergency Medicine; Visit Provider Psychiatry & Neurology Psychiatry
DX: F32.A Depression, unspecified (principal); R45.851 Suicidal ideations; G40.901 Epilepsy, unspecified, not intractable, with status epilepticus; J45.909 Unspecified asthma, uncomplicated; F17.210 Nicotine dependence, cigarettes, uncomplicated; F63.81 Intermittent explosive disorder; E66.9 Obesity, unspecified; Z68.33 Body mass index [BMI] 33.0-33.9, adult; F70 Mild intellectual disabilities; Z79.51 Long term (current) use of inhaled steroids
CPT/HCPCS: 80053; 80306; 80307; 85025; 97150; 97165; 99285